=== PATIENT | male | born 1945 | race Caucasian/White ===

== ENCOUNTER 2016-11-08 21:59 | Emergency (ER) | payer MEDICARE, OTHER ==
--- NOTE | ~2016-11-08 | ER ---
PATIENT'S NAME: TAMIKO MONTANA [facility] AGE: 71 Y [address] ROOM: [place] [address] LOCATION: ED ADMIT DATE: 11/08/2016 ER/Outpatient Report DISCHARGE DATE: 11/09/2016 FAMILY PHYSICIAN: PHYSICIAN, NO ATTENDING PHYSICIAN: Antoine Nunez CHIEF COMPLAINT: Chest pain. HISTORY OF PRESENT ILLNESS: The patient states that he has been having chest pain. The pain started at rest approximately 2 hours prior to arrival around 7 p.m. It is located in the right side of the chest and is worse with breathing. He has a history of heart attack and stents. He is a former smoker with high blood pressure and high cholesterol. He denies any prior history of blood clots. No recent travel or hospitalizations. [facility] He states he has been taking his medications normally. He did vomit some with this and the pain started after vomiting. PAST MEDICAL HISTORY: Documented on the record and reviewed by me. SOCIAL HISTORY: Documented on the record and reviewed by me. MEDICATIONS: Documented on the record and reviewed by me. ALLERGIES: DOCUMENTED ON THE RECORD AND REVIEWED BY ME. REVIEW OF SYSTEMS: All systems reviewed and negative except as noted in the HPI. PHYSICAL EXAMINATION: VITAL SIGNS: Blood pressure 177/81, pulse 71, respiratory rate is 16, temperature 96.8, SpO2 is 97% on room air. Pain is rated 5/10. GENERAL: Age-appropriate male. No obvious pain or distress. Resting comfortably upright on the exam table. NEUROLOGIC: Awake and alert. GCS 15. No focal deficits or asymmetry on exam. HEENT: Normocephalic, atraumatic. Eyes are PERRL. Oropharynx is clear. NECK: Supple. Trachea is midline. CHEST: Heart is regular rate and rhythm with no murmurs. LUNGS: Clear to auscultation bilateral with no rhonchi, wheezes, or rales. PATIENT'S NAME: TAMIKO MONTANA [facility] AGE: 71 Y [address] ROOM: [place] [address] LOCATION: [facility] ADMIT DATE: 11/08/2016 ER/Outpatient Report DISCHARGE DATE: 11/09/2016 FAMILY PHYSICIAN: PHYSICIAN, NO ATTENDING PHYSICIAN: Antoine Nunez ABDOMEN: Soft, nontender, and nondistended. No rebound or guarding. The chest wall is slightly tender to palpation. BACK: Nontender to palpation throughout. No CVA tenderness. EXTREMITIES: Warm and well perfused. No evidence of DVT. No erythema or edema. SKIN: Warm, dry, and intact. LABORATORY DATA AND X-RAYS: Chest x-ray was obtained and unremarkable per my read. Initial troponin is undetectable. Initial CK-MB was greater than 9. Repeat down to 8.7. EKG initially was significant artifact, but no evidence of acute ischemia. Repeat EKG is unchanged from prior. The remainder of the labs, amylase and lipase are 35 and 86 respectively. GGT is 23. CMS is notable for a glucose of 122, creatinine of 1.4, GFR of 50, but otherwise grossly unremarkable. Magnesium of 1.8. CPK of 260 initially. The initial and repeat troponin is below threshold. CK-MB downtrend from 9.1-8.7. WBC is 13.3, hemoglobin of 12.5, and platelets of 259. INR is 1.0. IMPRESSION: 1. Vomiting with chest pain. 2. Mild acute kidney injury versus chronic kidney disease. 3. Mild improvement. EMERGENCY DEPARTMENT COURSE: The patient was seen and evaluated as above. Differential includes ACS, pneumonia, pneumothorax, dissection, and PE. He was not felt to have a PE. There were no signs of DVT and his presentation started after wretching. I feel he is more likely having chest pain related to musculoskeletal injury from wretching. However, given his history, I did perform a cardiac rule out. His chest pain improved significantly throughout his stay in the emergency department. He was treated with aspirin, nitroglycerin, Zofran, and GI cocktail. He had most relief with a GI cocktail. No relief with the nitroglycerin. His pain remains minimally present. I encouraged observation and admission for further evaluation. The patient declined. We talked at length with the patient and . [facility] and return immediately if worse. All questions were answered and the patient was discharged in stable condition. MD EDMUNDO CONROY/faith PATIENT'S NAME: TAMIKO MONTANA Aleena [facility] AGE: 71 Y [address] ROOM: [place] [address] LOCATION: [facility] ADMIT DATE: 11/08/2016 ER/Outpatient Report DISCHARGE DATE: 11/09/2016 FAMILY PHYSICIAN: BRIDGETTE GUERRA ATTENDING PHYSICIAN: Antoine Nunez /[id number] d: 11/10/16 0015 t: 11/20/16 0847, OUTPATIENT REPORT
[2016-11-08 22:37] LABS: BASOPHIL # 0.1 K/uL (0.0-0.2); BASOPHIL % 0.4 %; EOSINOPHIL % 0.2 %; HEMATOCRIT 40.4 % (37.0-53.0); HEMOGLOBIN 12.5 g/dL (11.0-16.0); IMMATURE GRANULOCYTE # 0.1 K/uL (0.0-0.3); IMMATURE GRANULOCYTE % 0.7 %; LYMPHOCYTE # 1.4 K/uL (0.8-4.0); LYMPHOCYTE % 10.2 %; MCH 26.2 pg (27.0-34.0); MCHC 30.9 gm/dL (32.0-36.5); MCV 84.5 fl (83.0-98.0); MONOCYTE # 1.3 K/uL (0.0-1.0); MONOCYTE % 9.4 %; MPV 9.5 fl (9.4-12.4); NEUTROPHIL # (ANC) 10.5 K/uL (1.4-9.0); NEUTROPHIL % 79.1 %; NRBC % 0 /100WBC (0-0.00); PLATELET COUNT 259 K/uL (150-450); RBC 4.78 M/uL (3.50-5.50); RDW-CV 16.2 % (11.9-14.6); WBC 13.3 K/uL (4.0-11.0)
[2016-11-08 22:49] LABS: PTT 23 SECONDS (25-32)
[2016-11-08 22:55] LABS: ALBUMIN 3.4 gm/dL (3.5-5.0); ALK PHOS 77 IU/L (33-138); ALT 29 IU/L (12-78); ANION GAP 13.7 (10.0-19.0); AST 22 IU/L (10-40); BLOOD UREA NITROGEN 22 mg/dL (6-24); CALCIUM 8.4 mg/dL (8.5-10.5); CHLORIDE 103 mMol/L (96-110); CO2 26 mMol/L (22-32); CPK 260 IU/L (35-332); CREATININE 1.4 mg/dL (0.6-1.3); ESTIMATED GFR (MDRD EQUATION) 50; MAGNESIUM 1.8 mg/dL (1.3-2.6); POTASSIUM 3.7 mMol/L (3.7-5.1); SODIUM 139 mMol/L (135-145); TOTAL BILIRUBIN 0.3 mg/dL (0.0-1.5); TOTAL PROTEIN 7.7 g/dL (6.0-8.4)
[2016-11-09 00:52] LABS: CPK 226 IU/L (35-332)
== END 2016-11-09 01:15 | disposition disaster alternative care site (69) ==
LOC: GMED 21:59
PROVIDERS: Emergency Medicine
DX: R07.89 Other chest pain (principal); R11.10 Vomiting, unspecified; I10 Essential (primary) hypertension; E78.00 Pure hypercholesterolemia, unspecified; Z87.891 Personal history of nicotine dependence; Z79.84 Long term (current) use of oral hypoglycemic drugs; Z79.899 Other long term (current) drug therapy
CPT/HCPCS: J2405